=== PATIENT | male | born 1955 | race Caucasian/White ===

== ENCOUNTER 2022-02-06 06:05 | Day surgery (SDC) | payer MEDICARE ==
[~2022-02-06] VITALS: Ht 188 cm; Wt 100.7 kg
[2022-02-06] VITALS (9 sets, daily range): BP systolic 120–145; BP diastolic 78–90
[2022-02-06] MEDS ORDERED: normal saline 1,000 ML IV SCH (06:25)
[2022-02-06] MEDS ORDERED: diphenhydrAMINE 25mg capsule PO PRN (06:25)
[2022-02-06] MEDS ORDERED: GEMF600T89 PO (06:41)
[2022-02-06] MEDS ORDERED: LISI20TA28 PO (06:41)
[2022-02-06] MEDS ORDERED: ROSU20TA31 PO (06:41)
[2022-02-06] MEDS ORDERED: ASPI-1071 PO (06:42)
[2022-02-06 07:14] LABS: BASOPHILS % (AUTO) 0.6 % (0-1); EOSINOPHILS # (AUTO) 0.3 X10'3 (0-0.9); EOSINOPHILS % (AUTO) 5.2 % (0-6); HEMATOCRIT 39.5 % (42.0-52.0); HEMOGLOBIN 13.2 g/dl (14.0-17.9); LYMPHOCYTES # (AUTO) 1.4 X10'3 (1.1-4.8); MEAN CORPUSCULAR HEMOGLOBIN 28.9 PG (27.0-31.0); MEAN CORPUSCULAR HGB CONC 33.4 g/dL (33.0-36.5); MEAN CORPUSCULAR VOLUME 86.7 FL (78-98); MEAN PLATELET VOLUME 8.2 FL (7.4-10.4); MONOCYTES # (AUTO) 0.6 X10'3 (0-0.9); MONOCYTES % (AUTO) 8.9 % (2-12); NEUTROPHILS # (AUTO) 4.2 X10'3 (1.8-7.7); NEUTROPHILS % (AUTO) 64.3 % (42-75); PLATELET COUNT 261 X10'3 (140-440); RED BLOOD COUNT 4.55 X10'6 (4.70-6.10); RED CELL DISTRIBUTION WIDTH 13.8 % (11.5-14.5); WHITE BLOOD COUNT 6.6 X10'3 (4.5-11.0)
[2022-02-06] MEDS ORDERED: nitroGLYCERIN-Tridil 50MG/D5W 250 ML IV ONE (07:34)
[2022-02-06] MEDS ORDERED: verapamil 2.5 mg/ml inj IV ONE (07:34)
[2022-02-06] MEDS ORDERED: fentaNYL/PF 50MCG/1 ML 2ML syringe ONE (07:35)
[2022-02-06] MEDS ORDERED: iohexol 350MG/ML 100ml bottle IV ONE (07:35)
[2022-02-06] MEDS ORDERED: LIDOcaine 1% 30ml preserv. free vial ONE (07:35)
[2022-02-06] MEDS ORDERED: heparin 1,000unit/ml 10ml vial 10 ML ONE (07:35)
[2022-02-06] MEDS ORDERED: midazolam 1 mg/ML 2ml injection ONE ×3 (07:35→08:10)
[2022-02-06 07:50] LABS: ALBUMIN 3.7 G/DL (3.4-5.0); ANION GAP 13 (8-16); BLOOD UREA NITROGEN 20 MG/DL (7-18); BUN/CREATININE RATIO 23.8 (5.4-32.0); CALCIUM 8.9 MG/DL (8.5-10.1); CHLORIDE 109 MMOL/L (99-107); CREATININE 0.84 MG/DL (0.60-1.10); GLUCOSE 102 MG/DL (70-104); MAGNESIUM 2.1 MG/DL (1.5-2.4); SODIUM 145 MMOL/L (135-145); TOTAL CARBON DIOXIDE 22.9 MMOL/L (24-32); eGFR > 90 ML/MIN
[2022-02-06] MEDS ORDERED: ticagrelor 90mg tablet ONE (08:36)
[2022-02-06] MEDS ORDERED: HYDROcodone/acetaminophen 10/325mg tab PO PRN (09:10)
[2022-02-06] MEDS ORDERED: acetaminophen 325mg tablet PO PRN (09:10)
[2022-02-06] MEDS ORDERED: ondansetron/PF 4mg/2ml inj IV PRN (09:10)
[2022-02-06] MEDS ORDERED: HYDROcodone/acetaminophen 5mg/325mg tablet PO PRN (09:10)
[2022-02-06] MEDS ORDERED: proCHLORperazine 10 MG/2 ml inj IV PRN (09:10)
--- NOTE | 2022-02-06 10:02 | NUR ---
Contacted MD to confirm that patient could go home without Brilinta in hand. MD approved. Pt was educated on necessity of picking up medication at the [facility] on [address]. 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 Pt did verbalize agreement to picking up his prescription, he also verbalized the understanding he had received a "loading dose" of this medication today.
--- NOTE | 2022-02-06 12:40 | NUR ---
was contacted. Pt's ride is unavailable and pt is asking to take a taxi home. approved. Cab will be call for pt upon readiness to discharge.
--- NOTE | 2022-02-06 13:45 | NUR ---
Pt was escorted to taxi and left the facility.
--- NOTE | 2022-02-06 15:23 | NUR ---
Pt called with concerns that his prescription was not going to be covered by his insurance. Pt was educated on prescription being sent to [facility] on [address] with a discount card for the prescription. 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
== END 2022-02-06 13:10 | disposition home or self-care (01) ==
LOC: SSTAY O 06:05
PROVIDERS: ATTEND Internal Medicine Cardiovascular Disease
DX: R94.39 Abnormal result of other cardiovascular function study (principal); R07.89 Other chest pain; I25.10 Atherosclerotic heart disease of native coronary artery without angina pectoris; I10 Essential (primary) hypertension; E78.2 Mixed hyperlipidemia; Z87.11 Personal history of peptic ulcer disease; Z96.653 Presence of artificial knee joint, bilateral; Z79.82 Long term (current) use of aspirin; Z79.899 Other long term (current) drug therapy; Z98.890 Other specified postprocedural states; Z72.89 Other problems related to lifestyle; Z82.49 Family history of ischemic heart disease and other diseases of the circulatory system
CPT/HCPCS: 36415; 80048; 83735; 85025; 85610; 93005; 93306; 93454; 99152; 99153; A6258; C1769; C1894; J1644; J2250; J3010; J3490; J7030; Q0163; Q9967; A4620; A6402

== ENCOUNTER 2022-02-17 07:08 | Day surgery (SDC) | payer MEDICARE ==
[2022-02-17] VITALS (11 sets, daily range): BP systolic 118–136; BP diastolic 70–86
[~2022-02-17] VITALS: Ht 185.4 cm; Wt 100.0 kg
[~2022-02-17 07:08] MED LIST: ASPI-1071 PO; GEMF600T89 PO; LISI20TA28 PO; ROSU20TA31 PO
[2022-02-17] MEDS ORDERED: diphenhydrAMINE 25mg capsule PO PRN (07:30)
[2022-02-17] MEDS ORDERED: normal saline 1,000 ML IV SCH (07:30)
[2022-02-17] MEDS ORDERED: TICA90TA2 PO (07:37)
[2022-02-17 07:58] LABS: BASOPHILS % (AUTO) 0.6 % (0-1); EOSINOPHILS # (AUTO) 0.3 X10'3 (0-0.9); EOSINOPHILS % (AUTO) 4.8 % (0-6); HEMATOCRIT 39.9 % (42.0-52.0); HEMOGLOBIN 13.6 g/dl (14.0-17.9); LYMPHOCYTES # (AUTO) 1.2 X10'3 (1.1-4.8); LYMPHOCYTES % (AUTO) 19.6 % (21-51); MEAN CORPUSCULAR HEMOGLOBIN 29.6 PG (27.0-31.0); MEAN PLATELET VOLUME 8.3 FL (7.4-10.4); MONOCYTES # (AUTO) 0.6 X10'3 (0-0.9); MONOCYTES % (AUTO) 10.6 % (2-12); NEUTROPHILS # (AUTO) 3.9 X10'3 (1.8-7.7); NEUTROPHILS % (AUTO) 64.4 % (42-75); PLATELET COUNT 245 X10'3 (140-440); RED BLOOD COUNT 4.58 X10'6 (4.70-6.10); RED CELL DISTRIBUTION WIDTH 14.4 % (11.5-14.5)
[2022-02-17] MEDS ORDERED: iohexol 350MG/ML 100ml bottle IV ONE ×3 (08:00→10:17)
[2022-02-17] MEDS ORDERED: heparin 1,000unit/ml 10ml vial 10 ML ONE ×2 (08:48→10:40)
[2022-02-17] MEDS ORDERED: LIDOcaine 1%/PF 5ML 10 MG/ML VIAL ONE ×3 (08:48→09:27)
[2022-02-17] MEDS ORDERED: verapamil 2.5 mg/ml inj IV ONE (08:48)
[2022-02-17] MEDS ORDERED: fentaNYL/PF 50MCG/1 ML 2ML syringe ONE ×2 (08:48→09:56)
[2022-02-17] MEDS ORDERED: nitroGLYCERIN-Tridil 50MG/D5W 250 ML IV ONE (08:48)
[2022-02-17] MEDS ORDERED: midazolam 1 mg/ML 2ml injection ONE ×2 (08:48→09:27)
[2022-02-17 08:57] LABS: ALBUMIN 3.8 G/DL (3.4-5.0); ANION GAP 12 (8-16); BLOOD UREA NITROGEN 14 MG/DL (7-18); BUN/CREATININE RATIO 16.9 (5.4-32.0); CALCIUM 8.9 MG/DL (8.5-10.1); CHLORIDE 108 MMOL/L (99-107); CREATININE 0.83 MG/DL (0.60-1.10); GLUCOSE 96 MG/DL (70-104); MAGNESIUM 1.8 MG/DL (1.5-2.4); POTASSIUM 3.8 MMOL/L (3.5-5.1); SODIUM 142 MMOL/L (135-145); TOTAL CARBON DIOXIDE 22.3 MMOL/L (24-32); eGFR > 90 ML/MIN
[2022-02-17] MEDS ORDERED: OXAZEpam 15mg capsule PO PRN (11:50)
[2022-02-17] MEDS ORDERED: proCHLORperazine 10 MG/2 ml inj IV PRN (11:50)
[2022-02-17] MEDS ORDERED: ondansetron/PF 4mg/2ml inj IV PRN (11:50)
[2022-02-17] MEDS ORDERED: HYDROcodone/acetaminophen 10/325mg tab PO PRN (11:50)
[2022-02-17] MEDS ORDERED: HYDROcodone/acetaminophen 5mg/325mg tablet PO PRN (11:50)
[2022-02-17] MEDS ORDERED: normal saline 1000ml 1,000 ML IV SCH (11:50)
== END 2022-02-17 15:25 | disposition home or self-care (01) ==
LOC: SSTAY O 07:08
PROVIDERS: ATTEND Internal Medicine Cardiovascular Disease
DX: I25.10 Atherosclerotic heart disease of native coronary artery without angina pectoris (principal); E78.2 Mixed hyperlipidemia; I10 Essential (primary) hypertension; E78.00 Pure hypercholesterolemia, unspecified; Z87.11 Personal history of peptic ulcer disease; Z96.653 Presence of artificial knee joint, bilateral; Z79.82 Long term (current) use of aspirin; Z79.899 Other long term (current) drug therapy; Z82.49 Family history of ischemic heart disease and other diseases of the circulatory system; Z72.89 Other problems related to lifestyle; I42.9 Cardiomyopathy, unspecified; E78.5 Hyperlipidemia, unspecified
CPT/HCPCS: 36415; 80048; 83735; 85025; 85610; 93005; 99152; 99153; C1725; C1751; C1760; C1769; C1874; C1892; C1894; C9600; J1644; J2250; J3010; J3490; J7030; Q0163; Q9967; A4620; A5120; A6258; A6449

== ENCOUNTER 2022-10-30 09:29 | Day surgery (SDC) | payer MEDICARE ==
[~2022-10-30] VITALS: Ht 185.4 cm; Wt 105.6 kg
[2022-10-30] VITALS (12 sets, daily range): BP systolic 125–152; BP diastolic 75–94
[~2022-10-30 09:29] MED LIST changes: +DOCUMENT DATE & TIME OF BETA-BLOCKER PO ONE; -LISI20TA28 PO; +METO25TA6 PO; +cefazolin 2gm/D5W 100mL 100 ML IV ONE; +famotidine 20mg tablet PO ONE; +ringers solution, lacted 1,000 ML IV SCH
[2022-10-30 11:19] LABS: BASOPHILS % (AUTO) 0.7 % (0-1); EOSINOPHILS # (AUTO) 0.3 X10'3 (0-0.9); EOSINOPHILS % (AUTO) 5.1 % (0-6); LYMPHOCYTES # (AUTO) 1.2 X10'3 (1.1-4.8); LYMPHOCYTES % (AUTO) 18.6 % (21-51); MEAN CORPUSCULAR HEMOGLOBIN 30.7 PG (27.0-31.0); MEAN CORPUSCULAR VOLUME 90.2 FL (78-98); MEAN PLATELET VOLUME 8.4 FL (7.4-10.4); MONOCYTES # (AUTO) 0.5 X10'3 (0-0.9); MONOCYTES % (AUTO) 8.1 % (2-12); NEUTROPHILS # (AUTO) 4.4 X10'3 (1.8-7.7); NEUTROPHILS % (AUTO) 67.5 % (42-75); PRE OP HEMOGLOBIN 13.9 g/dL (14.0-17.9); PRE OP PLATELET COUNT 228 X10'3 (140-440); RED BLOOD COUNT 4.55 X10'6 (4.70-6.10); RED CELL DISTRIBUTION WIDTH 15.2 % (11.5-14.5)
[2022-10-30 11:33] LABS: PRE OP PARTIAL THROMB. TIME 27 SECONDS (22-32)
[2022-10-30 11:37] LABS: ALBUMIN 4.1 G/DL (3.4-5.0); ALBUMIN/GLOBULIN RATIO 1.4 (1.1-1.5); ALKALINE PHOSPHATASE 70 IU/L (46-116); BLOOD UREA NITROGEN 15 MG/DL (7-18); BUN/CREATININE RATIO 20.5 (10.0-20.0); CALCIUM 8.6 MG/DL (8.5-10.1); CHLORIDE 103 MMOL/L (99-107); CREATININE 0.73 MG/DL (0.60-1.10); PRE OP ALT 22 U/L (30-65); PRE OP ANION GAP 10 (8-16); PRE OP AST 14 U/L (10-37); PRE OP BILIRUB, TOTAL 0.5 MG/DL (0.0-1.0); PRE OP GLUCOSE 95 MG/DL (70-104); PRE OP POTASSIUM 3.8 MMOL/L (3.4-5.1); PRE OP SODIUM 138 MMOL/L (135-145); TOTAL CARBON DIOXIDE 25.2 MMOL/L (24-32); TOTAL PROTEIN 7.1 G/DL (6.4-8.2); eGFR > 90 ML/MIN
[2022-10-30 12:35] LABS: CLARITY,URINE CLEAR (Clear); COLOR,URINE YELLOW (Yellow); GLUCOSE, URINE NEGATIVE (Neg); KETONES,URINE NEGATIVE (Neg); LEUKOCYTE ESTERASE ,URINE NEGATIVE (Neg); NITRITES, URINE NEGATIVE (Neg); OCCULT BLOOD,URINE NEGATIVE (Neg); PROTEIN,URINE NEGATIVE (Neg); UA COLLECTION TYPE CLN CATCH MIDSTREAM; UROBILINOGEN,URINE 0.2 E.U/dL (0.2-1.0)
[2022-10-30] MEDS ORDERED: BUPIVAcaine/PF 2.5 mg/ml (0.25%) 30ml vial ONE (14:33)
[2022-10-30] MEDS ORDERED: fentaNYL/PF 50MCG/1 ML 2ML syringe ONE (15:01)
[2022-10-30] MEDS ORDERED: neostigmine methylsulfate 1 MG/ML 10ml vial ONE (15:02)
[2022-10-30] MEDS ORDERED: ondansetron/PF 4mg/2ml inj ONE (15:02)
[2022-10-30] MEDS ORDERED: propofol inj 20 ML IV ONE (15:02)
[2022-10-30] MEDS ORDERED: rocuronium 10mg/ml inj IV ONE ×2 (15:02→15:04)
[2022-10-30] MEDS ORDERED: glycopyrrolate 0.2mg/ml inj ONE (15:02)
[2022-10-30] MEDS ORDERED: LIDOcaine 2% (20mg/ml) 5ml vial ONE (15:02)
[2022-10-30] MEDS ORDERED: midazolam 1 mg/ML 2ml injection ONE (15:02)
[2022-10-30] MEDS ORDERED: dexamethasone sod phosphate 10mg/ml inj ONE (15:04)
[2022-10-30] MEDS ORDERED: sevoflurane 250ml liquid IH ONE (15:04)
[2022-10-30] MEDS ORDERED: ringers solution, lacted 1,000 ML IV SCH (16:20)
[2022-10-30] MEDS ORDERED: hydrALAZINE 20mg/ml inj. IV PRN (16:20)
[2022-10-30] MEDS ORDERED: ondansetron/PF 4mg/2ml inj IV PRN (16:20)
[2022-10-30] MEDS ORDERED: morphine 2 MG/ML inj. syringe IV PRN (16:20)
[2022-10-30] MEDS ORDERED: fentaNYL/PF 50MCG/1 ML 2ML syringe IV PRN ×2 (16:20)
[2022-10-30] MEDS ORDERED: labetalol 20mg/4ml (5mg/ml) syringe IV PRN (16:20)
[2022-10-30] MEDS ORDERED: morphine 4 MG/ML inj SYRINge IV PRN (16:20)
--- NOTE | 2022-10-30 17:35 | NUR ---
Received from OR via [facility], accompanied by Anesthesiologist DR KHOURY and report given by Anesthesiolgist. PT PRESENTS WITH 20G LEFT HAND, ABD DRESSING CDI 3 BANDAIDS, PT HAS POST OP SHIVERS WITH VERBAL FROM DR KHOURY TO GIVEN 25MG DENEROL IV PUSH, VSS. Addendum: 10/30/22 at 1753 by Leslie [facility]az[facility] RN, RN Amended: Links added.
[2022-10-30] MEDS ORDERED: meperidine/PF 25mg/ml syringe ONE (17:37)
[2022-10-30] MEDS ORDERED: meperidine/PF 25mg/ml syringe IV ONE (17:45)
[2022-10-30] MEDS ORDERED: HYDROcodone/acetaminophen 10/325mg tab PO ONE (18:00)
--- NOTE | 2022-10-30 19:25 | NUR ---
ALL DISCHARGE CRITERIA HAS BEEN MET. VSS, PAIN AT A TOLERABLE LEVEL, VOIDING AND ABLE TO SAFELY AMBULATE AND TRANSFER SELF. IV TAKEN OUT WITHOUT COMPLICATIONS. ALL DISCHARGE INSTRUCTIONS COVERED WITH PATIENT AND ALL QUESTIONS ANSWERED, COPY GIVEN TO PATIENT. PATIENT TAKEN OUT VIA WHEELCHAIR TO PERSONAL VEHICLE WHERE FAMILY/FRIEND DROVE PATIENT HOME.
== END 2022-10-30 19:23 | disposition home or self-care (01) ==
LOC: PAS 09:29
PROVIDERS: ATTEND Surgery
DX: K43.2 Incisional hernia without obstruction or gangrene (principal); I10 Essential (primary) hypertension; I25.10 Atherosclerotic heart disease of native coronary artery without angina pectoris; E78.2 Mixed hyperlipidemia; Z95.1 Presence of aortocoronary bypass graft; Z79.82 Long term (current) use of aspirin; Z79.899 Other long term (current) drug therapy; Z79.01 Long term (current) use of anticoagulants; Z96.653 Presence of artificial knee joint, bilateral; Z72.89 Other problems related to lifestyle; Z87.891 Personal history of nicotine dependence; Z82.49 Family history of ischemic heart disease and other diseases of the circulatory system; Z80.0 Family history of malignant neoplasm of digestive organs
CPT/HCPCS: 36415; 49593; 71045; 74176; 80053; 81003; 85025; 85610; 85730; 86885; 86900; 86901; C1758; C1781; J0690; J1100; J2175; J2250; J2405; J2704; J2710; J3010; J3490; J7030; J7120; Z7506; Z7508; Z7512; A4215; A4615; A4618

== ENCOUNTER 2022-12-18 09:32 | Inpatient (IN) | payer MEDICARE ==
[~2022-12-18] VITALS: Ht 188 cm; Wt 100.0 kg
[~2022-12-18 09:32] MED LIST changes: -DOCUMENT DATE & TIME OF BETA-BLOCKER PO ONE; -cefazolin 2gm/D5W 100mL 100 ML IV ONE; -famotidine 20mg tablet PO ONE; -ringers solution, lacted 1,000 ML IV SCH
[2022-12-18] MEDS ORDERED: IOHEXOL 12MG/ML oral solution 500 ML BOTTLE PO ONE (09:45)
[2022-12-18 09:57] LABS: BASOPHILS % (AUTO) 0.3 % (0-1); EOSINOPHILS # (AUTO) 0.1 X10'3 (0-0.9); EOSINOPHILS % (AUTO) 1.4 % (0-6); HEMATOCRIT 40.1 % (42.0-52.0); HEMOGLOBIN 13.6 g/dl (14.0-17.9); LYMPHOCYTES # (AUTO) 0.6 X10'3 (1.1-4.8); LYMPHOCYTES % (AUTO) 7.6 % (21-51); MEAN CORPUSCULAR HEMOGLOBIN 30.4 PG (27.0-31.0); MEAN CORPUSCULAR VOLUME 89.5 FL (78-98); MEAN PLATELET VOLUME 9.4 FL (7.4-10.4); MONOCYTES # (AUTO) 0.9 X10'3 (0-0.9); MONOCYTES % (AUTO) 11.5 % (2-12); NEUTROPHILS # (AUTO) 6.5 X10'3 (1.8-7.7); NEUTROPHILS % (AUTO) 79.2 % (42-75); PLATELET COUNT 249 X10'3 (140-440); RED BLOOD COUNT 4.48 X10'6 (4.70-6.10); RED CELL DISTRIBUTION WIDTH 13.3 % (11.5-14.5); WHITE BLOOD COUNT 8.2 X10'3 (4.5-11.0)
[2022-12-18 10:14] LABS: ALANINE AMINOTRANSFERASE 49 U/L (12-78); ALBUMIN 2.9 G/DL (3.4-5.0); ALBUMIN/GLOBULIN RATIO 0.7 (1.1-1.5); ALKALINE PHOSPHATASE 99 IU/L (46-116); ANION GAP 10 (8-16); ASPARTATE AMINO TRANSFERASE 31 U/L (10-37); BILIRUBIN,TOTAL 0.4 MG/DL (0.1-1.0); BLOOD UREA NITROGEN 28 MG/DL (7-18); BUN/CREATININE RATIO 25.5 (10.0-20.0); CALCIUM 8.6 MG/DL (8.5-10.1); CHLORIDE 95 MMOL/L (99-107); GLUCOSE 152 MG/DL (70-104); LIPASE 106 U/L (73-393); POTASSIUM 3.4 MMOL/L (3.5-5.1); SODIUM 127 MMOL/L (135-145); TOTAL PROTEIN 6.8 G/DL (6.4-8.2); eGFR 67 ML/MIN
[2022-12-18] MEDS ORDERED: ondansetron/PF 4mg/2ml inj IV ONE ×2 (10:25→17:55)
[2022-12-18] MEDS ORDERED: metoclopramide 5 mg/ml inj IV ONE (11:30)
[2022-12-18] MEDS ORDERED: normal saline 1000ML IV soln IVB ONE (12:50)
[2022-12-18] MEDS ORDERED: ROSU40TA22 PO (13:30)
[2022-12-18] MEDS ORDERED: SULF1TAB45 PO (13:30)
[2022-12-18] MEDS ORDERED: aspirin 81mg tab.chew PO ONE (13:40)
[2022-12-18] MEDS ORDERED: iohexol 350MG/ML 100ml bottle IV ONE (14:33)
[2022-12-18] MEDS ORDERED: magnesium hydroxide 30ml (MOM) UD suspension PO PRN (16:15)
[2022-12-18] MEDS ORDERED: acetaminophen 650mg rectal suppository RC PRN (16:15)
[2022-12-18] MEDS ORDERED: potassium Cl 20 mEq SR tablet PO PRN ×2 (16:15)
[2022-12-18] MEDS ORDERED: mag hydrox/Alum hydrox/simeth 30ml oral suspension PO PRN (16:15)
[2022-12-18] MEDS ORDERED: magnesium 4gm in 100ml NS 100 ML IV PRN (16:15)
[2022-12-18] MEDS ORDERED: acetaminophen 325mg tablet PO PRN ×2 (16:15)
[2022-12-18] MEDS ORDERED: PERFLUTREN PROTEIN-A MICROSPHR (Optison) 0.22 MG/ML 3ML VIAL IV ONE (16:15)
[2022-12-18] MEDS ORDERED: HYDROcodone/acetaminophen 10/325mg tab PO PRN (16:15)
[2022-12-18] MEDS: normal saline 1000ml 1,000 ML IV SCH ×2 (16:15→22:00)
[2022-12-18] MEDS ORDERED: magnesium 2GM in 50ml NS 50 ML IV PRN (16:15)
[2022-12-18] MEDS ORDERED: diphenhydrAMINE 25mg capsule PO PRN (16:15)
[2022-12-18] MEDS ORDERED: morphine 2 MG/ML inj. syringe IV PRN ×2 (16:15)
[2022-12-18] MEDS ORDERED: magnesium Cl slow-release 64mg tablet PO PRN (16:15)
[2022-12-18] MEDS ORDERED: bisacodyl 10mg suppository rectal RC PRN (16:15)
[2022-12-18] MEDS ORDERED: potassium Cl 40MEQ/1/2NS 520ml 520 ML IV PRN (16:15)
[2022-12-18] MEDS ORDERED: ondansetron/PF 4mg/2ml inj IV PRN (16:15)
[2022-12-18] MEDS ORDERED: HYDROcodone/acetaminophen 5mg/325mg tablet PO PRN (16:15)
[2022-12-18] MEDS ORDERED: pantoprazole 40mg IV 80 MG in normal saline 100ml IV soln 100 ML IV ONE (16:20)
[2022-12-18] MEDS ORDERED: clopidogrel 300mg tablet PO ONE ×2 (16:20→17:40)
[2022-12-18] MEDS ORDERED: pantoprazole 40mg IV 40 MG in normal saline 100ml IV soln 100 ML IV SCH (16:31)
[2022-12-18] MEDS ORDERED: pantoprazole 40MG/NS 100ML BAG 100 ML IV SCH (16:32)
[2022-12-18] MEDS ORDERED: thiamine 100mg/ml 2ml inj. IV ONE (17:55)
[2022-12-18] MEDS ORDERED: folic acid 1mg/0.2ml inj IV ONE (17:55)
[2022-12-18] MEDS ORDERED: dexamethasone sod phosphate 10mg/ml inj IV STA (18:08)
[2022-12-18] MEDS: gemfibrozil 600mg tablet PO SCH (18:21)
[2022-12-18] MEDS: metoprolol tartrate 12.5mg (1/2 tablet) PO SCH (20:00)
[2022-12-18] MEDS: docusate sod 100mg capsule PO SCH (20:42)
[2022-12-18] MEDS: heparin, porcine 5000 units/ml vial SQ SCH (20:45)
[2022-12-18] MEDS: K and/or MAG REPLACEMENT MC SCH (20:49)
[2022-12-18 21:30] VITALS: BP 126/85
--- NOTE | 2022-12-18 21:30 | NUR ---
PT REFUSED MRSA NASAL SWAB.
[2022-12-19] VITALS (7 sets, daily range): BP systolic 108–130; BP diastolic 72–81
--- NOTE | 2022-12-19 06:39 | NUR ---
Problems reprioritized. Patient report given, questions answered & plan of care reviewed with GAIL. Addendum: 12/19/22 at 0640 by Dewey Silverio RN Amended: Links added.
[2022-12-19 06:58] LABS: BASOPHILS % (AUTO) 0.1 % (0-1); EOSINOPHILS % (AUTO) 0.3 % (0-6); HEMATOCRIT 34.9 % (42.0-52.0); LYMPHOCYTES # (AUTO) 0.5 X10'3 (1.1-4.8); LYMPHOCYTES % (AUTO) 9.3 % (21-51); MEAN CORPUSCULAR HGB CONC 34.5 g/dL (33.0-36.5); MEAN CORPUSCULAR VOLUME 90.1 FL (78-98); MEAN PLATELET VOLUME 9.3 FL (7.4-10.4); MONOCYTES # (AUTO) 0.5 X10'3 (0-0.9); MONOCYTES % (AUTO) 8.1 % (2-12); NEUTROPHILS # (AUTO) 4.7 X10'3 (1.8-7.7); NEUTROPHILS % (AUTO) 82.2 % (42-75); PLATELET COUNT 253 X10'3 (140-440); RED BLOOD COUNT 3.87 X10'6 (4.70-6.10); WHITE BLOOD COUNT 5.7 X10'3 (4.5-11.0)
[2022-12-19 07:29] LABS: ALANINE AMINOTRANSFERASE 94 U/L (12-78); ALBUMIN 2.5 G/DL (3.4-5.0); ALBUMIN/GLOBULIN RATIO 0.8 (1.1-1.5); ALKALINE PHOSPHATASE 80 IU/L (46-116); ANION GAP 13 (8-16); ASPARTATE AMINO TRANSFERASE 80 U/L (10-37); BILIRUBIN,TOTAL 0.4 MG/DL (0.1-1.0); BLOOD UREA NITROGEN 23 MG/DL (7-18); CALCIUM 8.1 MG/DL (8.5-10.1); CHLORIDE 100 MMOL/L (99-107); CHOL/HDL RATIO 4.8 (0.00-4.99); CHOLESTEROL 87 MG/DL (0-200); CREATININE 0.82 MG/DL (0.60-1.10); GLUCOSE 172 MG/DL (70-104); HDL CHOLESTEROL 18 MG/DL (35-60); LDL CHOLESTEROL 43 MG/DL (50-100); MAGNESIUM 2.1 MG/DL (1.5-2.4); PHOSPHORUS 3.6 MG/DL (2.3-4.5); SODIUM 133 MMOL/L (135-145); TOTAL CARBON DIOXIDE 20.1 MMOL/L (24-32); TOTAL PROTEIN 5.6 G/DL (6.4-8.2); TRIGLYCERIDES 162 MG/DL (20-135); eGFR > 90 ML/MIN
--- NOTE | 2022-12-19 07:58 | NUR ---
Page sent to at approx [id number] - [id number], scheduled for head MRI, has hx of claustrophobia, may we have a one time dose of ativan prior to scan? Lilli Mcguire @1515.
[2022-12-19] MEDS ORDERED: aspirin 325mg tablet, delayed-release (Ecotrin) PO SCH (08:00)
[2022-12-19] MEDS: K and/or MAG REPLACEMENT MC SCH ×2 (08:00→20:00)
[2022-12-19] MEDS ORDERED: LORazepam 2 mg/ml vial IM ONE (08:40)
--- NOTE | 2022-12-19 08:41 | NUR ---
DR DILLON CALLED AND GAVE ME A TELEPHONE ORDER FOR 1 MG ATIVAN IV ONCE FOR USE BEFORE MRI.
[2022-12-19] MEDS ORDERED: insulin Lispro (HumaLOG) vial - multi-dose SQ SCH (08:50)
[2022-12-19] MEDS ORDERED: glucagon, human recombinant 1mg kit SUBCUT PRN (08:50)
[2022-12-19] MEDS ORDERED: MESSAGE TO PHARMACY PO ONE (08:50)
[2022-12-19] MEDS ORDERED: DEXTROSE 15 GM of carb/4 tabs (each vial/BOTTLE has 4 tablets) PO PRN ×2 (08:50)
[2022-12-19] MEDS ORDERED: LORazepam 2 mg/ml vial IV PRN (08:50)
[2022-12-19] MEDS ORDERED: dextrose 50%-water 50ml dispensing syringe IV PRN ×2 (08:50)
[2022-12-19] MEDS: pantoprazole 40mg Tablet.DR PO SCH (09:15)
[2022-12-19] MEDS: clopidogrel 75mg tablet PO SCH (09:15)
[2022-12-19] MEDS: docusate sod 100mg capsule PO SCH ×2 (09:15→21:11)
[2022-12-19] MEDS: aspirin 81mg, enteric-coated 1 TAB TABLET.DR PO SCH (09:15)
[2022-12-19] MEDS: atorvastatin 20mg tablet PO SCH (09:16)
[2022-12-19] MEDS: metoprolol tartrate 12.5mg (1/2 tablet) PO SCH ×2 (09:16→21:12)
[2022-12-19] MEDS: heparin, porcine 5000 units/ml vial SQ SCH ×2 (09:17→21:13)
[2022-12-19] MEDS: gemfibrozil 600mg tablet PO SCH ×2 (09:17→16:49)
[2022-12-19] MEDS: multivitamins, therapeutics tablet PO SCH (09:24)
[2022-12-19] MEDS: folic acid 1mg tablet PO SCH (09:24)
[2022-12-19] MEDS: thiamine 100mg tablet PO SCH (09:24)
[2022-12-19] MEDS ORDERED: LORazepam 2 mg/ml vial IV ONE (09:35)
--- NOTE | 2022-12-19 13:00 | NUR ---
LN obtained clean catch urine specimen and sent to lab.
[2022-12-19 13:44] LABS: CLARITY,URINE CLEAR (Clear); COLOR,URINE YELLOW (Yellow); GLUCOSE, URINE 250 mg/dl (Neg); KETONES,URINE NEGATIVE (Neg); LEUKOCYTE ESTERASE ,URINE NEGATIVE (Neg); NITRITES, URINE NEGATIVE (Neg); OCCULT BLOOD,URINE NEGATIVE (Neg); PH,URINE 6.5 (4.8-8.0); PROTEIN,URINE NEGATIVE (Neg)
--- NOTE | 2022-12-19 13:45 | NUR ---
LN photo'd and documented surgical incision open area to abdomen. Pt has small abrasion to R elbow. Wound consult ordered. Wounds cleansed and covered with clean dry bandage.
[2022-12-19 13:48] LABS: UA COLLECTION TYPE NON-SPECIFIED
[2022-12-19 13:54] LABS: URINE AMPHETAMINE SCREEN NEGATIVE (Neg); URINE BARBITUATE SCREEN NEGATIVE (Neg); URINE BENZODIAZEPINES SCREEN NEGATIVE (Neg); URINE CANNABINOID SCREEN POSITIVE (Neg); URINE COCAINE SCREEN NEGATIVE (Neg); URINE METHADONE SCREEN NEGATIVE (Neg); URINE OPIATE SCREEN POSITIVE (Neg); URINE PHENCYCLIDINE SCREEN NEGATIVE (Neg)
--- NOTE | 2022-12-19 17:33 | NUR ---
Page sent to radiology at approx 1039 - Pt [id number], has ordered an abdominal ultrasound @1430, will this be completed today? Lilli C @4421.
--- NOTE | 2022-12-19 17:38 | NUR ---
LN spoke with US biswas, pt to be NPO after midnight tonite. Tech will perform abdominal US @ 0600 on 12/20. Orders updated, and signs posted.
--- NOTE | 2022-12-19 18:00 | NUR ---
Patient in room PCU 3022. I have received report from Lilli YAO and had the opportunity to ask questions and assume patient care.
[2022-12-19] MEDS ORDERED: insulin glargine (Lantus) pen - multi-dose SQ SCH (21:00)
[2022-12-19] MEDS: LORazepam 1 MG tablet PO PRN (21:13)
[2022-12-20 02:00] VITALS: BP 122/79
[2022-12-20] MEDS: normal saline 1000ml 1,000 ML IV SCH ×2 (03:13→08:15)
[2022-12-20] MEDS: LORazepam 1 MG tablet PO PRN (03:15)
[2022-12-20 06:00] VITALS: BP 135/76
[2022-12-20] MEDS: gemfibrozil 600mg tablet PO SCH (07:00)
--- NOTE | 2022-12-20 07:03 | NUR ---
Patient in room PCU 3022. I have received report from Hannah AGUILERA and had the opportunity to ask questions and assume patient care.
--- NOTE | 2022-12-20 07:05 | NUR ---
Problems reprioritized. Patient report given, questions answered & plan of care reviewed with Lin YAO.
[2022-12-20 07:43] LABS: BASOPHILS % (AUTO) 0.2 % (0-1); EOSINOPHILS # (AUTO) 0.2 X10'3 (0-0.9); EOSINOPHILS % (AUTO) 4.2 % (0-6); HEMATOCRIT 34.2 % (42.0-52.0); HEMOGLOBIN 11.8 g/dl (14.0-17.9); LYMPHOCYTES % (AUTO) 17.2 % (21-51); MEAN CORPUSCULAR HEMOGLOBIN 30.9 PG (27.0-31.0); MEAN CORPUSCULAR HGB CONC 34.5 g/dL (33.0-36.5); MEAN CORPUSCULAR VOLUME 89.6 FL (78-98); MEAN PLATELET VOLUME 8.3 FL (7.4-10.4); MONOCYTES # (AUTO) 0.7 X10'3 (0-0.9); MONOCYTES % (AUTO) 11.6 % (2-12); NEUTROPHILS # (AUTO) 3.9 X10'3 (1.8-7.7); NEUTROPHILS % (AUTO) 66.8 % (42-75); PLATELET COUNT 333 X10'3 (140-440); RED BLOOD COUNT 3.81 X10'6 (4.70-6.10); RED CELL DISTRIBUTION WIDTH 13.3 % (11.5-14.5); WHITE BLOOD COUNT 5.9 X10'3 (4.5-11.0)
[2022-12-20 07:53] LABS: ALANINE AMINOTRANSFERASE 107 U/L (12-78); ALBUMIN 2.6 G/DL (3.4-5.0); ALBUMIN/GLOBULIN RATIO 0.8 (1.1-1.5); ALKALINE PHOSPHATASE 74 IU/L (46-116); AMYLASE 37 U/L (25-115); ANION GAP 12 (8-16); ASPARTATE AMINO TRANSFERASE 45 U/L (10-37); BILIRUBIN,TOTAL 0.4 MG/DL (0.1-1.0); BLOOD UREA NITROGEN 22 MG/DL (7-18); BUN/CREATININE RATIO 27.8 (10.0-20.0); CALCIUM 7.9 MG/DL (8.5-10.1); CHLORIDE 105 MMOL/L (99-107); CREATININE 0.79 MG/DL (0.60-1.10); GLUCOSE 110 MG/DL (70-104); LIPASE 169 U/L (73-393); PHOSPHORUS 3.1 MG/DL (2.3-4.5); POTASSIUM 3.8 MMOL/L (3.5-5.1); SODIUM 138 MMOL/L (135-145); TOTAL PROTEIN 5.7 G/DL (6.4-8.2); eGFR > 90 ML/MIN
[2022-12-20 08:00] VITALS: BP_SYST 119; BP_SYST 125; BP_SYST 128; BP_DIAS 80; BP_DIAS 88; BP_DIAS 93
[2022-12-20] MEDS: K and/or MAG REPLACEMENT MC SCH (08:00)
[2022-12-20] MEDS: thiamine 100mg tablet PO SCH (08:29)
[2022-12-20 08:30] VITALS: BP 138/96
[2022-12-20] MEDS: aspirin 81mg, enteric-coated 1 TAB TABLET.DR PO SCH (08:30)
[2022-12-20] MEDS: multivitamins, therapeutics tablet PO SCH (08:30)
[2022-12-20] MEDS: clopidogrel 75mg tablet PO SCH (08:30)
[2022-12-20] MEDS: docusate sod 100mg capsule PO SCH (08:30)
[2022-12-20] MEDS: pantoprazole 40mg Tablet.DR PO SCH (08:30)
[2022-12-20] MEDS: folic acid 1mg tablet PO SCH (08:30)
[2022-12-20] MEDS: heparin, porcine 5000 units/ml vial SQ SCH (08:31)
[2022-12-20] MEDS: atorvastatin 20mg tablet PO SCH (08:33)
[2022-12-20] MEDS: metoprolol tartrate 12.5mg (1/2 tablet) PO SCH (08:37)
--- NOTE | 2022-12-20 08:49 | NUR ---
PAGER ID: [phone] MESSAGE: [phone]- Paolo Singer: Patient BG 110, has scheduled Lopid. NPO for ABD US. Do you want me to give or hold? Neil Ceballos [phone]
[2022-12-20 11:00] VITALS: BP 126/81
--- NOTE | 2022-12-20 13:17 | NUR ---
PRESSURE ULCER EDUCATION: DEFINITION: A pressure ulcer is an area of skin that breaks down when you stay in one position too long. The constant pressure against the skin reduces the blood flow to that area and the affected tissue dies. CAUSES: "Being bedridden or in a wheelchair "Fragile skin "Having a chronic condition, such as diabetes or vascular disease "Inability to move certain parts of your body without assistance "Older age "Incontinence of urine or stool SYMPTOMS: "A reddened area that DOES NOT turn white when pressed on - this can be the beginning of a pressure ulcer "A blister, deep sore or a crater - these can be advanced pressure ulcers FIRST AID: "Relieve the pressure on this area "Keep the area clean and dry "Call your primary doctor if you see any of the above symptoms "DO NOT massage the area "DO NOT use a donut shaped or ring shaped pillow- these actually interfere with the blood flow and cause complications PREVENTION: "Check for pressure ulcers everyday "Change position at least every two hours to relieve pressure "Use items that help relieve pressure- pillows, sheepskin, foam padding, and powders. "Keep skin clean and dry "Eat healthy well balanced meals "Exercise daily IF YOU SEE ANY OF THESE SYMPTOMS WHILE IN THE HOSPITAL - TELL YOUR NURSE IMMEDIATELY. IF YOU SEE ANY OF THESE SYMPTOMS WHILE AT HOME OR HAVE ANY QUESTIONS OR CONCERNS ABOUT PRESSURE ULCERS - CALL YOUR PRIMARY DOCTOR IMMEDIATELY. Addendum: 12/20/22 at 1317 by Vickie Birmingham LVN Amended: Links added.
[2022-12-20] MEDS ORDERED: METF-1203 PO (14:18)
[2022-12-20] MEDS ORDERED: MULT-25 PO (14:18)
[2022-12-20] MEDS ORDERED: PANT40TA54 PO (14:18)
[2022-12-20] MEDS ORDERED: FOLI1TAB27 PO (14:18)
[2022-12-20] MEDS ORDERED: THIA50TA10 PO (14:18)
[2022-12-20] MEDS ORDERED: LISI5TAB22 PO (14:19)
[2022-12-20 15:30] VITALS: BP 120/87
--- NOTE | 2022-12-20 15:30 | NUR ---
Patient stable and appropriate for discharge. VS obtained and stable. PIV removed, cannula intact-patient tolerated well. Discharge paperwork reviewed and signed by patient. Discharge education provided, patient states understanding. All belongings accounted for and sent home with patient. 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 Patient states understanding. Patient's son Dr. Singer at bedside to take patient home, patient assisted out of facility via wheelchair by staff accompanied by his son and grand kids. Patient independent into vehicle. No s/sx of distress noted
== END 2022-12-20 15:24 | disposition home or self-care (01) | DRG 392 ==
LOC: ER 09:32 → ED HOLD 16:17 → PCU 3S 21:05
PROVIDERS: ADMIT Family Medicine; ATTEND Family Medicine
PROC: B3251ZZ Computerized Tomography (CT Scan) of Bilateral Common Carotid Arteries using Low Osmolar Contrast (ICD-10-PCS; principal; 2022-12-18)
PROC: B32G1ZZ Computerized Tomography (CT Scan) of Bilateral Vertebral Arteries using Low Osmolar Contrast (ICD-10-PCS; 2022-12-18)
PROC: B32R1ZZ Computerized Tomography (CT Scan) of Intracranial Arteries using Low Osmolar Contrast (ICD-10-PCS; 2022-12-18)
PROC: B3281ZZ Computerized Tomography (CT Scan) of Bilateral Internal Carotid Arteries using Low Osmolar Contrast (ICD-10-PCS; 2022-12-18)
DX: K29.20 Alcoholic gastritis without bleeding (principal); E87.1 Hypo-osmolality and hyponatremia; E86.0 Dehydration; Z20.822 Contact with and (suspected) exposure to COVID-19; I25.10 Atherosclerotic heart disease of native coronary artery without angina pectoris; Z96.653 Presence of artificial knee joint, bilateral; R44.1 Visual hallucinations; E87.6 Hypokalemia; Z60.2 Problems related to living alone; F12.90 Cannabis use, unspecified, uncomplicated; F10.90 Alcohol use, unspecified, uncomplicated; E78.1 Pure hyperglyceridemia; E78.5 Hyperlipidemia, unspecified; M21.372 Foot drop, left foot; R11.2 Nausea with vomiting, unspecified; I10 Essential (primary) hypertension; Z79.82 Long term (current) use of aspirin; Z79.899 Other long term (current) drug therapy; Z82.49 Family history of ischemic heart disease and other diseases of the circulatory system; Z87.891 Personal history of nicotine dependence; Z95.1 Presence of aortocoronary bypass graft; Z71.51 Drug abuse counseling and surveillance of drug abuser; Z71.41 Alcohol abuse counseling and surveillance of alcoholic
CPT/HCPCS: 36415; 70450; 70496; 70498; 70551; 71045; 74176; 76700; 80053; 80061; 80305; 81003; 82150; 82948; 83036; 83605; 83690; 83735; 84100; 84145; 84443; 85025; 85610; 85651; 86705; 86706; 86709; 86803; 87081; 87340; 87502; 87503; 87522; 87811; 92508; 92616; 93306; 96374; 97161; 97530; 99285; A4615; A6212; G0378; J1100; J1644; J1815; J2060; J2405; J2765; J3411; J3490; J7030; Q9967